=== PATIENT | male | born 1955 | race Asian ===

== ENCOUNTER → 2022-07-15 | Day surgery (SDC) | payer OTHER ==
[2022-07-10 08:26] LABS: BASOPHILS % 0.5 % (0.0-1.0); EOSINOPHILS # (AUTO) 0.2 (0.0-0.4); EOSINOPHILS % 3.5 % (0.0-6.0); HEMOGLOBIN 15.1 g/dL (14.0-18.0); LYMPHOCYTES # (AUTO) 2.2 (1.0-3.2); LYMPHOCYTES % 35.1 % (18.0-39.1); MEAN CORPUSCULAR HGB CONC 32.1 g/dL (31-35); MEAN CORPUSCULAR VOLUME 99.6 fL (81-99); MONOCYTES # (AUTO) 0.4 (0.2-0.8); MONOCYTES % 5.7 % (4.4-11.3); NEUTROPHILS # (AUTO) 3.5 (2.1-6.9); PLATELET COUNT 275 x10e3/uL (140-360); RED BLOOD COUNT 4.72 x10e6/uL (4.3-5.7); RED CELL DISTRIBUTION WIDTH 12.6 % (11.7-14.4)
[~2022-07-15] MED LIST: ALLOPURINOL300 MG PO; AMLODIPINE BESYL5 MG PO; LEVOTHYROXINE50 MC1 PO; PRAVASTATIN SOD20 MG; PROPOFOL IV EMULSION 10 MG/ML 20 ML VIAL ONE
[2022-07-15 07:53] VITALS: BP 116/76
== END | disposition home or self-care (01) ==
LOC: OR 07:02
PROVIDERS: ATTEND Internal Medicine Gastroenterology
DX: Z09 Encounter for follow-up examination after completed treatment for conditions other than malignant neoplasm (principal); Z86.010 Personal history of colon polyps; I10 Essential (primary) hypertension; E03.9 Hypothyroidism, unspecified; I44.0 Atrioventricular block, first degree; Z78.9 Other specified health status; Z01.810 Encounter for preprocedural cardiovascular examination; Z01.812 Encounter for preprocedural laboratory examination; Z79.899 Other long term (current) drug therapy
CPT/HCPCS: 36415; 45378; 85025; 93005